=== PATIENT | female | born 1990 | race African-American/Black ===

== ENCOUNTER 2017-01-20 13:03 | Emergency (ER) | payer SELFPAY ==
[~2017-01-20] VITALS: Ht 162.6 cm; Wt 56.0 kg
[~2017-01-20 13:03] MED LIST: CIPR500T4 PO; IBUP800T23 PO; METH750T2 PO
[2017-01-20 13:06] VITALS: BP 113/71; PULSE 87; RESP 12; TEMP 98.8; O2SAT 97
--- NOTE | 2017-01-20 13:22 | PD ---
Physical Exam Time Seen by Provider: 13:20 Narrative 22-year-old female with complaint of a lump to her right lateral neck and abdominal pain that has been on and off for the last 2 months. Occasional diarrhea. Denies vomiting, fever. Denies vaginal discharge, odor. Last menstrual period was last month. Patient seen in triage. VS reviewed. Awaiting bed placement. Data Data Last Documented VS Vital Signs Date Time Temp Pulse Resp B/P (MAP) Pulse Ox O2 Delivery O2 Flow Rate FiO2 01/20/17 13:06 98.8 87 12 113/71 (85) 97 MDM Supervised Visit with SHERLY: Kiana Lopez Jan 20, 2017 13:22
[2017-01-20 14:45] LABS: BLOOD, URINE NEG (NEG); COMMENT (UR) CULT NOT INDICATED; CULTURE IF INDICATED CULT NOT INDICATED; GLUCOSE,URINE NEG (NEG); KETONE, URINE NEG (NEG); MUCUS URINE FEW /lpf (OCC); NITRITE,URINE NEG (NEG); PH, URINE 7.5 (5.0-8.5); SQUAMOUS EPITHELIAL CELL URINE 5 /hpf (0-5); URINE COLOR YELLOW (YELLW/STRAW)
[2017-01-20 15:12] VITALS: BP 119/67; PULSE 60; RESP 16; O2SAT 100
--- NOTE | 2017-01-20 15:17 | PD ---
Physical Exam Date Seen by Provider: Jan 20, 2017 Narrative Patient presents with a mass on the right side of her neck. Data Data Last Documented VS Vital Signs Date Time Temp Pulse Resp B/P (MAP) Pulse Ox O2 Delivery O2 Flow Rate FiO2 01/20/17 15:12 60 16 119/67 (84) 100 Room Air 01/20/17 13:06 98.8 Orders Orders Urinalysis - C+S If Indicated (01/20/17 13:30) Ed Urine Pregnancytest Poc (01/20/17 13:30) Labs Laboratory Tests Test 01/20/17 14:20 Urine Color YELLOW Urine Turbidity HAZY Urine pH 7.5 Urine Specific [place] 1.020 Urine Protein NEG mg/dL Urine Glucose (UA) NEG mg/dL Urine Ketones NEG mg/dL Urine Occult Blood NEG Urine Nitrite NEG Urine Bilirubin NEG Urine Urobilinogen LESS THAN 2.0 MG/DL Urine Leukocyte Esterase NEG Urine WBC LESS THAN 1 /hpf Urine Squamous Epithelial Cells 5 /hpf Urine Mucus FEW /lpf Microscopic Urinalysis Comment CULT NOT INDICATED MDM Supervised Visit with SHERLY: Yes Narrative Course I, Dr. Leslie, have reviewed the advance practice practitioner's documentation and am in agreement, met with the patient face to face, made the diagnosis, and the medical decision making was done by me. *My assessment and Findings: This patient has a soft mass just posterior to the sternocleidomastoid muscle on the right. It is freely mobile. The overlying skin is not red or hot. It is most likely a lipoma. Scripts No Active Prescriptions or Reported Meds Daksha Leslie MD Jan 20, 2017 15:17
--- NOTE | 2017-01-20 15:31 | PD ---
HPI Chief Complaint: Abdominal Pain Time Seen by Provider: 15:15 Travel History International Travel<30 days: No Contact w/Intl Traveler<30days: No Traveled to known affect area: No History of Present Illness HPI 26-year-old female presents to the emergency department for evaluation of a small lump to right lateral aspect of neck. Patient first noticed this lump approximately 2 months ago. The lump is approximately 1.51.5 cm, soft, movable with no associated pain or erythema. Patient states she became very concerned and started noticing intermittent abdominal pain and headaches that she considered to be associated with the lump. Patient currently has none of these physiological symptoms but would like to be sure that she isn't missing anything with the lump. Patient had presented to a local clinic a couple weeks ago for evaluation of the lump. She was prescribed antibiotics and told it was an infected lymph node. Patient finished the antibiotics but nothing had changed regarding the lump. Patient has never had any fevers or pain or warmth surrounding the area associated with a lump. She denies any pain associated with the lump. Patient has full range of motion with her neck. No neck stiffness or pain. Patient denies any chest pain, shortness breath, fevers, malaise, chills or weakness. Patient has had intermittent abdominal pain but currently denies any abdominal pain or nausea. [facility] Past Medical History Medical History: Denies Significant Hx Influenza Vaccination: No ?: Not LMP: DEC 28, 2016 Past Surgical History Surgical History: No Previous Surgery Social History Alcohol Use: No Tobacco Use: No Substance Use: No Allergies-Medications (Allergen,Severity, Reaction): Coded Allergies: No Known Allergies (Unverified , 01/20/17) Reported Meds & Prescriptions Reported Meds & Active Scripts Active No Active Prescriptions or Reported Medications Review of Systems Except as stated in HPI: all other systems reviewed are Neg Physical Exam Narrative GENERAL: Well-developed well-nourished 29-year-old black female SKIN: Focused skin assessment warm/dry. Approximately 1.51.5 cm, soft, movable mass to right lateral aspect of neck with no associated pain or erythema. HEAD: Atraumatic. Normocephalic. EYES: Pupils equal and round. No scleral icterus. No injection or drainage. ENT: No nasal bleeding or discharge. Mucous membranes pink and moist. NECK: Trachea midline. No JVD. CARDIOVASCULAR: Regular rate and rhythm. No murmur appreciated. RESPIRATORY: No accessory muscle use. Clear to auscultation. Breath sounds equal bilaterally. GASTROINTESTINAL: Abdomen soft, non-tender, nondistended. Hepatic and splenic margins not palpable. MUSCULOSKELETAL: No obvious deformities. No clubbing. No cyanosis. No edema. NEUROLOGICAL: Awake and alert. No obvious cranial nerve deficits. Motor grossly within normal limits. Normal speech. PSYCHIATRIC: Appropriate mood and affect; insight and judgment normal. Data Data Last Documented VS Vital Signs Date Time Temp Pulse Resp B/P (MAP) Pulse Ox O2 Delivery O2 Flow Rate FiO2 01/20/17 15:12 60 16 119/67 (84) 100 Room Air 01/20/17 13:06 98.8 Orders Orders Urinalysis - C+S If Indicated (01/20/17 13:30) Ed Urine Pregnancytest Poc (01/20/17 13:30) Labs Laboratory Tests Test 01/20/17 14:20 Urine Color YELLOW Urine Turbidity HAZY Urine pH 7.5 Urine Specific [place] 1.020 Urine Protein NEG mg/dL Urine Glucose (UA) NEG mg/dL Urine Ketones NEG mg/dL Urine Occult Blood NEG Urine Nitrite NEG Urine Bilirubin NEG Urine Urobilinogen LESS THAN 2.0 MG/DL Urine Leukocyte Esterase NEG Urine WBC LESS THAN 1 /hpf Urine Squamous Epithelial Cells 5 /hpf Urine Mucus FEW /lpf Microscopic Urinalysis Comment CULT NOT INDICATED MDM Medical Decision Making Medical Screen Exam Complete: Yes Emergency Medical Condition: Yes Medical Record Reviewed: Yes Differential Diagnosis Surgical diagnoses include but are not limited to lipoma, swollen lymph node, liposarcoma, abscess Narrative Course 26-year-old female presents to the emergency department for evaluation of approximately 1.51.5 cm, soft, movable lump to right lateral aspect of neck that she first noticed 2 months ago. There is no pain or tenderness, erythema or warmth associated with the lump. Patient denies any fever, chills, malaise. Patient denies any chest pain or shortness breath. Patient has full range of motion in her neck with no stiffness or pain. Patient states she has had intermittent abdominal pain that she thought was associated with lump. UA was ordered and shows no acute abnormalities. Patient case was discussed with my attending Dr. Leslie. Due to physical exam, clinical presentation and history patient is diagnosed with lipoma and referred to general surgery to follow up Patient will be discharged home with surgical referral to follow up. Diagnosis Primary Impression: Lipoma of neck Referrals: Bhavin Ortiz MD Primary Care Physician Patient Instructions: General Instructions, Lipoma (ED) Additional Instructions: Follow-up with general surgery regarding lipoma removal. Return to the emergency Department with any signs or symptoms of infection or emergent conditions. Scripts No Active Prescriptions or Reported Meds Disposition: 01 DISCHARGE HOME Condition: Stable Cheryl Thomson Jan 20, 2017 15:31
== END 2017-01-20 16:07 | disposition home or self-care (01) ==
LOC: NEPD 13:03
DX: D17.0 Benign lipomatous neoplasm of skin and subcutaneous tissue of head, face and neck (principal); R10.9 Unspecified abdominal pain; R51 Headache
CPT/HCPCS: 81001; 84703; 99283